=== PATIENT | male | born 1995 | race Two or more races ===

== ENCOUNTER 2019-06-15 10:43 | Emergency (ER) | payer MEDICAID ==
[~2019-06-15] VITALS: Ht 162.6 cm; Wt 72.0 kg
[2019-06-15 10:56] VITALS: BP 130/71
== END 2019-06-15 13:06 ==
LOC: ED 13:00
DX: R11.2 Nausea with vomiting, unspecified (principal); R10.13 Epigastric pain; T60.91XA Toxic effect of unspecified pesticide, accidental (unintentional), initial encounter; R53.1 Weakness; Z87.891 Personal history of nicotine dependence
CPT/HCPCS: 36415; 80053; 83690; 85025; 96361; 96374; 96375; 99283; J2405; J3490; J7030

== ENCOUNTER 2021-02-08 12:57 | Emergency (ER) | payer MEDICAID ==
[~2021-02-08] VITALS: Ht 167.6 cm; Wt 77.9 kg
[2021-02-08 13:03] VITALS: BP 133/61
--- NOTE | 2021-02-08 13:24 | NUR ---
MD AT BS WITH RACK W[employer]ER. POC DISCUSSED, QUESTIONS ADDRESSED
[2021-02-08] MEDS ORDERED: IBUPROFEN 800 MG TABLET ONE (13:28)
[2021-02-08] MEDS ORDERED: IBUPROFEN 800 MG TABLET PO ONE (13:30)
--- NOTE | 2021-02-08 13:34 | NUR ---
PT TO XRAY
--- NOTE | 2021-02-08 14:42 | NUR ---
Patient given discharge instructions and they have confirmed that they understand the instructions. Patient ambulatory WITH CRUTCHES. CRUTCH EDUCATION/INSTRUCTION GIVEN. DIRECTOR OF PARTNERSHIPS ([id number]) ADDRESSED ANY QUESTIONS.
== END 2021-02-08 14:46 | disposition home or self-care (01) ==
LOC: ED 13:56
DX: S83.412A Sprain of medial collateral ligament of left knee, initial encounter (principal); S83.242A Other tear of medial meniscus, current injury, left knee, initial encounter; R53.1 Weakness; M79.89 Other specified soft tissue disorders; X58.XXXA Exposure to other specified factors, initial encounter; Y93.89 Activity, other specified; Y92.89 Other specified places as the place of occurrence of the external cause; Y99.8 Other external cause status
CPT/HCPCS: 29505; 99283